=== PATIENT | female | born 1995 | race American Indian/Alaskan Native ===

== ENCOUNTER 2017-08-11 03:27 | Emergency (ER) | payer MEDICAID, OTHER, SELFPAY | END 2017-08-11 04:41 | disposition home or self-care (01) | PROVIDERS: Emergency Provider Emergency Medicine; Visit Provider Emergency Medicine | DX: N39.0 Urinary tract infection, site not specified (principal) | CPT/HCPCS: 81003; 81015; 81025; 87086; 99282 ==

== ENCOUNTER → 2017-11-10 10:51 | Outpatient (CLI) | payer MEDICAID, SELFPAY | PROVIDERS: PCP Obstetrics & Gynecology; Visit Provider Obstetrics & Gynecology | DX: Z53.8 Procedure and treatment not carried out for other reasons (principal) ==

== ENCOUNTER → 2017-11-29 12:30 | Outpatient (CLI) | payer MEDICAID, SELFPAY ==
[2017-11-29 13:41] LABS: Add Manual Diff / Slide Review NO; Basophils Percent Auto 0.4 % (0-2); Eosinophils Percent Auto 0.8 % (2-4); Hematocrit 37.9 % (36-46); Hemoglobin 12.9 g/dL (12.0-16.0); Lymphocytes Percent Auto 19.9 % (25-40); Mean Corpuscular HGB Conc 34.1 % (30-36); Mean Corpuscular Hemoglobin 30.7 PG (26-34); Monocytes Percent Auto 4.1 % (3-14); Neutrophils Absolute Auto 9000 /uL (3000-5900); Neutrophils Percent Auto 74.8 % (50-75); Platelet Count 393 X10^3/uL (150-400); Red Blood Cell Count 4.21 X10^6/uL (4.0-5.2); Red Cell Distribution Width 13.8 % (11.6-14.8); White Blood Cell Count 12.1 X10^3/uL (4.5-11.0)
[2017-11-29 16:07] LABS: HIV 1 and 2 Antibody NEGATIVE (NEGATIVE); Hep C Virus Ab w/Reflex Quant NEGATIVE s/c (NEGATIVE); Hepatitis B Surface Antigen NEGATIVE s/c (NEGATIVE); Rubella Antibody IgG 3.3 IU/mL (>15)
[2017-12-01 13:47] LABS: HSV 2 IGG AB < 0.90 index (< 0.90)
[2017-12-05 10:23] LABS: Rapid Plasma Reagin NON-REACTIVE
== END ==
PROVIDERS: PCP Obstetrics & Gynecology; Visit Provider Obstetrics & Gynecology
DX: Z34.91 Encounter for supervision of normal pregnancy, unspecified, first trimester (principal)
CPT/HCPCS: 36415; 80055; 86695; 86696; 86703; 86787; 86803; 86850; 86900; 86901

== ENCOUNTER → 2017-12-13 09:50 | Outpatient (CLI) | payer MEDICAID, SELFPAY ==
--- NOTE | 2017-12-13 09:51 | DI.US.S_ITS ---
PROCEDURE: US OB >= 14 WEEKS FETUS INDICATIONS: Anatomy Survey OUTSIDE/PRIOR DATING DATA: Last menstrual period (LMP): Unknown. LMP-based estimated date of delivery (CLEMENTE): Not available. First dating scan (date and location): 08/20/17, [facility]. Estimated date of delivery (CLEMENTE) from first dating scan: 04/20/18. TECHNIQUE: Real-time scanning was performed of the fetus, with image documentation and biometric measurements. Endovaginal scanning: No COMPARISON: [facility], OB COMPLETE LESS THAN 14 WKS, 08/20/2017, 18:34. [facility], OB >= 14 WEEKS FETUS, 11/29/2017, 12:11. FINDINGS: General: A single living intrauterine gestation is present. Presentation: Vertex. Placenta: Placental position is anterior, without previa. Amniotic fluid index: 14.2 cm, normal range is 5-24 cm. heart rate: 160 beats per minute. Maternal cervical canal: 4.9 cm long. Normal lower limit is 2.5 cm. biometrics: Biparietal diameter: 21 weeks 3 days Head circumference: 20 weeks 6 days Abdominal circumference: 21 weeks 4 days Femur length: 21 weeks 6 days Estimated gestational age from initial scan: 21 weeks 5 days Composite gestational age from present scan: 21 weeks 3 days Estimated weight and percentile: 437 g; 38 percentile Measurement variability for biometric dating: +/- 7 days from 14 weeks to 15 weeks 6 days gestation, +/- 10 days from 16 weeks to 21 weeks 6 days gestation, +/- 2 weeks from 22 weeks to 27 weeks 6 days gestation, +/- 3 weeks for 28 weeks gestation or later. weight reference: 4500 g or EFW >90/95% is considered macrosomia or large for gestational age. EFW <10% is small for gestational age. EFW 5% or less is considered intra-uterine growth restriction. Anatomic survey: Neuro: Ventricles are non-dilated at less than 10 mm. Cisterna magna is normal at 3-11 mm. Cerebellum is normal in size and morphology. Nuchal skin fold: Normal at less than 6 mm between 14-21 weeks gestational age. Face: Nose and lips, facial profile are normal. Spine: No evidence for spina bifida. Heart: 4-chambered heart is present, with normal ventricular outflow tracts. Diaphragm: Diaphragm is intact. Stomach: Left-sided stomach is present. Kidneys: No hydronephrosis. Normal is less than 5 mm in 2nd trimester, less than 7 mm in 3rd trimester. Cord: 3-vessel cord has orthotopic insertion. Bladder: Normal in size. Extremities: All 4 extremities identified. IMPRESSION: 1. Single living IUP redemonstrated in interval growth is normal. 2. Normal anatomic survey. Dictated by: Sam Moyer [facility] Interpreted: Anushka Kelly MD on 12/13/2017 at 11:16 Approved by: Anushka Kelly MD, PhD on 12/13/2017 at 12:38
== END ==
PROVIDERS: PCP Obstetrics & Gynecology; Visit Provider Obstetrics & Gynecology
DX: Z34.82 Encounter for supervision of other normal pregnancy, second trimester (principal); Z3A.21 21 weeks gestation of pregnancy
CPT/HCPCS: 76811

== ENCOUNTER → 2018-01-19 11:27 | Outpatient (CLI) | payer MEDICAID, SELFPAY ==
[2018-01-19 14:04] LABS: Hematocrit 34.4 % (36-46)
[2018-01-19 14:51] LABS: GTT (PREG) 1 Hour PP 50gm Dose 111 mg/dL (76-139)
== END ==
PROVIDERS: PCP Obstetrics & Gynecology; Visit Provider Obstetrics & Gynecology
DX: Z34.82 Encounter for supervision of other normal pregnancy, second trimester (principal)
CPT/HCPCS: 36415; 82950; 85014; 85018

== ENCOUNTER 2018-01-26 15:57 | Observation (INO) | payer MEDICAID, SELFPAY ==
--- NOTE | 2018-01-26 17:36 | DI.US.S_ITS ---
PROCEDURE: US OB TRANSVAGINAL INDICATIONS: need cervical length OUTSIDE/PRIOR DATING DATA: Last menstrual period (LMP): None. LMP-based estimated date of delivery (CLEMENTE): None. First dating scan (date and location): 08/20/17 Estimated date of delivery (CLEMENTE) from first dating scan: 04/20/18. TECHNIQUE: Real-time scanning was performed of the fetus, with image documentation. Endovaginal scanning: Yes COMPARISON: None. FINDINGS: A single living intrauterine gestation is present. Presentation: Breech heart rate: 147 beats per minute. Maternal cervical canal: 3.7 cm long. Normal lower limit is 2.5 cm. Estimated gestational age from initial scan: 28 week zero day. IMPRESSION: Limited evaluation shows a single live intrauterine with fetus in breech presentation. heart rate is 147 beats per minute. Cervical length is 3.7 cm. Dictated by: Emigdio Felix M.D. on 01/26/2018 at 19:08 Approved by: Emigdio Felix M.D. on 01/26/2018 at 19:10
== END 2018-01-26 19:15 | disposition home or self-care (01) ==
PROVIDERS: Admitting Provider Obstetrics & Gynecology; PCP Obstetrics & Gynecology; Visit Provider Obstetrics & Gynecology
DX: Z34.83 Encounter for supervision of other normal pregnancy, third trimester (principal); Z3A.28 28 weeks gestation of pregnancy; O26.899 Other specified pregnancy related conditions, unspecified trimester
CPT/HCPCS: 59025; 76817; G0378; G0379

== ENCOUNTER 2018-03-03 08:42 | Outpatient (CLI) | payer MEDICAID, OTHER, SELFPAY ==
--- NOTE | 2018-03-03 09:18 | DI.US.S_ITS ---
PROCEDURE: US OB TRANSVAGINAL INDICATIONS: CERVICAL LENGTH OUTSIDE/PRIOR DATING DATA: Last menstrual period (LMP): Unknown. LMP-based estimated date of delivery (CLEMENTE): Unknown. First dating scan (date and location): 08/20/17. Estimated date of delivery (CLEMENTE) from first dating scan: 04/20/18. TECHNIQUE: Real-time scanning was performed of the fetus, with image documentation. COMPARISON: [facility], OB COMPLETE LESS THAN 14 WKS, 08/20/2017, 18:34. [facility], , OB > 14 WEEKS, 02/23/2018, 16:42. [facility], OB >= 14 WEEKS FETUS, 02/09/2018, 12:10. [facility], OB TRANSVAGINAL, 01/26/2018, 18:54. FINDINGS: A single living intrauterine gestation is present. Presentation: Vertex. Placenta: Placental position is fundal, without previa. Lower placental edge 0.5 to 3 cm from internal cervical os qualifies as low lying placenta. Marginal previa is defined as lower edge 0 to 0.5 mm from internal os. Amniotic fluid index: 15.5 cm, normal range is 5-24 cm. heart rate: 145 beats per minute. Maternal cervical canal: 4.0 cm long. Normal lower limit is 2.5 cm. Estimated gestational age from initial scan: 33 weeks one day. IMPRESSION: 1. Single live intrauterine with cervical length measuring 4.0 cm. Dictated by: Ashley Junior M.D. on 03/03/2018 at 10:43 Approved by: Ashley Junior M.D. on 03/03/2018 at 10:50
--- NOTE | 2018-03-03 10:03 | PM.OBTRLD ---
Visit Information Visit Information Date of evaluation: 03/03/18 Primary OB Provider: Cleopatra Campbell On-call OB Provider: Guera España Reason for Evaluation: Yes pre-term labor [facility] Medical History Acne (Chronic) Anxiety (Chronic) Depression (Chronic) Surgical History No history of previous surgery (Resolved 02/2016) Family History Brother SIDS (sudden syndrome) Father Liver failure Mother Heart attack Sister No problems noted. Sister No problems noted. Evaluation Evaluation Baseline heart rate: 150 Variability: Moderate (11-25) monitor accelerations: Present monitor decelerations: Absent Uterine Contraction Intensity: Mild Category of Tracing: I Diagnosis, Plan/Disposition Final Diagnosis (1) 33 weeks gestation of : Current Visit: Yes Status: Acute (2) contractions: Current Visit: Yes Status: Acute Plan/Disposition Plan: 22-year-old at 33 and 1 weeks gestation with prior 33 week delivery presenting today with frequent contractions. Contractions started several hours prior to arrival. Patient also reported slight pink discharge when wiping which has not recurred. Denies leaking fluid. On the monitor she is having irregular contractions. heart tones reassuring. Cervical length 4 centimeters on ultrasound today. MUNIRA 15. labor unlikely at this point. Patient follow up with Dr. Campbell for her next OB appointment. Return precautions given by center nurse.
--- NOTE | 2018-03-03 10:06 | P.TNLD_ITS ---
Visit Information Visit Information Date of evaluation: 03/03/18 Primary OB Provider: Cleopatra Campbell On-call OB Provider: Guera España Reason for Evaluation: Yes pre-term labor [facility] Medical History Acne (Chronic) Anxiety (Chronic) Depression (Chronic) Surgical History No history of previous surgery (Resolved 02/2016) Family History Brother SIDS (sudden syndrome) Father Liver failure Mother Heart attack Sister No problems noted. Sister No problems noted. Evaluation Evaluation Baseline heart rate: 150 Variability: Moderate (11-25) monitor accelerations: Present monitor decelerations: Absent Uterine Contraction Intensity: Mild Category of Tracing: I Diagnosis, Plan/Disposition Final Diagnosis (1) 33 weeks gestation of : Current Visit: Yes Status: Acute (2) contractions: Current Visit: Yes Status: Acute Plan/Disposition Plan: 22-year-old at 33 and 1 weeks gestation with prior 33 week delivery presenting today with frequent contractions. Contractions started several hours prior to arrival. Patient also reported slight pink discharge when wiping which has not recurred. Denies leaking fluid. On the monitor she is having irregular contractions. heart tones reassuring. Cervical length 4 centimeters on ultrasound today. MUNIRA 15. labor unlikely at this point. Patient follow up with Dr. Campbell for her next OB appointment. Return precautions given by center nurse.
[2018-03-03 10:25] LABS: Appearance Urine UA CLEAR; Bilirubin Urine UA NEGATIVE (NEGATIVE); Color Urine UA YELLOW; Glucose Urine UA NEGATIVE (Normal); Ketones Urine UA NEGATIVE (NEGATIVE); Leukocyte Esterase Urine UA 3+ (NEGATIVE); Nitrite Urine UA NEGATIVE (Negative); Occult Blood Urine UA 3+ (Negative); Protein Urine UA TRACE (Negative); Urobilinogen Urine UA 0.2 E.U./dL (0.2)
[2018-03-03 10:27] LABS: RBC Urine 5-10/HPF (0-5/HPF)
[2018-03-03 10:28] LABS: Bacteria Urine Moderate (10-30); Culture Indicated Urine Cult Not Indicated; Squamous Epithelial Cell Urine 5-10 /HPF; WBC Urine 10-30/HPF (0-5/HPF)
== END 2018-03-03 10:40 | disposition home or self-care (01) ==
LOC: LABOR 09:03 → OB 03-05 06:59
PROVIDERS: PCP Obstetrics & Gynecology; Visit Provider Family Medicine
DX: Z34.83 Encounter for supervision of other normal pregnancy, third trimester (principal); Z3A.33 33 weeks gestation of pregnancy; O47.9 False labor, unspecified
CPT/HCPCS: 59025; 76817; 81001; G0378; G0379

== ENCOUNTER 2018-03-18 22:46 | Outpatient (CLI) | payer MEDICAID, OTHER, SELFPAY ==
--- NOTE | 2018-03-19 09:40 | PM.OBTRLD ---
Visit Information Visit Information Date of evaluation: 03/18/18 Primary OB Provider: Cleopatra Campbell On-call OB Provider: Clara Small Reason for Evaluation: Yes rule out labor Vital Signs Vital Signs: Blood pressure 115/54, pulse of 111 Evaluation Evaluation Baseline heart rate: 150 Variability: Moderate (11-25) monitor accelerations: Present monitor decelerations: Absent Contraction Frequency (minutes): 10 Uterine Contraction Intensity: Mild Category of Tracing: I Diagnosis, Plan/Disposition Final Diagnosis (1) contractions: Current Visit: No Status: Acute (2) 35 weeks gestation of : Current Visit: No Status: Acute Plan/Disposition Plan: Patient is not in active labor she was discharged home with routine precautions.
== END 2018-03-18 23:45 | disposition home or self-care (01) ==
LOC: OB 03-19 15:45
PROVIDERS: PCP Obstetrics & Gynecology; Visit Provider Specialist
DX: Z34.83 Encounter for supervision of other normal pregnancy, third trimester (principal); Z3A.35 35 weeks gestation of pregnancy
CPT/HCPCS: 59025; G0378; G0379

== ENCOUNTER 2018-03-25 19:34 | Outpatient (CLI) | payer MEDICAID, OTHER, SELFPAY ==
[2018-03-25 20:50] LABS: RBC Urine None Seen (0-5/HPF)
[2018-03-25 20:52] LABS: Appearance Urine UA SL CLOUDY; Bilirubin Urine UA NEGATIVE (NEGATIVE); Color Urine UA YELLOW; Glucose Urine UA NEGATIVE (Normal); Ketones Urine UA NEGATIVE (NEGATIVE); Leukocyte Esterase Urine UA 3+ (NEGATIVE); Nitrite Urine UA NEGATIVE (Negative); Occult Blood Urine UA NEGATIVE (Negative); Protein Urine UA NEGATIVE (Negative); Specific Gravity Urine UA 1.015 (1.000-1.035); Urobilinogen Urine UA 0.2 E.U./dL (0.2)
[2018-03-25 21:11] LABS: Amorphous Sediment Urine 1+; Bacteria Urine Few (2-10); Squamous Epithelial Cell Urine 1-5 /HPF; Trichomonas Urine 1-5/HPF (None Seen); WBC Urine 0-1/HPF (0-5/HPF)
[2018-03-25 21:12] LABS: Culture Indicated Urine Specimen Cultured
[2018-03-25 21:33] LABS: Strep Grp B PCR NEG for Grp B Strep
== END 2018-03-25 20:49 | disposition home or self-care (01) ==
LOC: OB 03-27 08:52
PROVIDERS: Family Provider Obstetrics & Gynecology; PCP Obstetrics & Gynecology; Visit Provider Family Medicine
DX: Z34.83 Encounter for supervision of other normal pregnancy, third trimester (principal); Z3A.36 36 weeks gestation of pregnancy
CPT/HCPCS: 59025; 81001; 87081; 87086; 87653; G0378; G0379

== ENCOUNTER 2018-03-27 17:21 | Outpatient (CLI) | payer MEDICAID, OTHER, SELFPAY ==
[2018-03-27 18:04] LABS: Add Manual Diff / Slide Review NO; Basophils Percent Auto 0.5 % (0-2); Eosinophils Percent Auto 1.1 % (2-4); Hematocrit 37.2 % (36-46); Hemoglobin 12.5 g/dL (12.0-16.0); Lymphocytes Percent Auto 20.4 % (25-40); Mean Corpuscular HGB Conc 33.7 % (30-36); Mean Corpuscular Hemoglobin 30.8 PG (26-34); Mean Corpuscular Volume 91.3 fL (80-100); Monocytes Percent Auto 5.3 % (3-14); Neutrophils Absolute Auto 9100 /uL (3000-5900); Neutrophils Percent Auto 72.7 % (50-75); Platelet Count 313 X10^3/uL (150-400); Red Blood Cell Count 4.08 X10^6/uL (4.0-5.2); Red Cell Distribution Width 13.8 % (11.6-14.8); White Blood Cell Count 12.5 X10^3/uL (4.5-11.0)
[2018-03-27 18:15] LABS: Aspartate Aminotransferase 20 IU/L (14-36); Blood Urea Nitrogen 8 mg/dL (7-17); Estimated Glomerular Filt Rate > 60.0 mL/min (>60)
--- NOTE | 2018-03-27 18:25 | PM.OBTRLD ---
Visit Information Visit Information Date of evaluation: 03/27/18 Primary OB Provider: Cleopatra Campbell On-call OB Provider: Amalia Ibarra Reason for Evaluation: Yes other Comments/Additional reasons for admission: Pt sent from the [facility] clinic due to concerns for elevated BP and swelling. The pt reports that her BP was in the 120 to low 130s/70s. She denies headache, vision changes, RUQ pain. Objective Labs Result Diagrams: 03/27/18 17:56 03/27/18 17:56 Labs: Laboratory Results - last 24 hr 03/27/18 03/27/18 17:56 17:56 WBC 12.5 H RBC 4.08 Hgb 12.5 Hct 37.2 MCV 91.3 MCH 30.8 MCHC 33.7 RDW 13.8 Plt Count 313 Neut % (Auto) 72.7 Lymph % (Auto) 20.4 L Emmons % (Auto) 5.3 Eos % (Auto) 1.1 L Baso % (Auto) 0.5 Neut # (Auto) 9100 H BUN 8 Creatinine 0.50 L Estimated GFR > 60.0 BUN/Creatinine Ratio 16.0 Uric Acid 5.0 AST 20 Evaluation Evaluation Baseline heart rate: 145 Variability: Moderate (11-25) monitor accelerations: Present monitor decelerations: Absent Category of Tracing: I Laboratory results: Laboratory Tests 03/27/18 03/27/18 17:56 17:56 WBC 12.5 H RBC 4.08 Hgb 12.5 Hct 37.2 MCV 91.3 MCH 30.8 MCHC 33.7 RDW 13.8 Plt Count 313 Neut % (Auto) 72.7 Lymph % (Auto) 20.4 L Emmons % (Auto) 5.3 Eos % (Auto) 1.1 L Baso % (Auto) 0.5 Neut # (Auto) 9100 H BUN 8 Creatinine 0.50 L Estimated GFR > 60.0 BUN/Creatinine Ratio 16.0 Uric Acid 5.0 AST 20 Diagnosis, Plan/Disposition Final Diagnosis (1) 36 weeks gestation of : Current Visit: No Status: Acute Plan/Disposition Plan: Pt with BPs elevated above normal baseline, but still in normal range at outside clinic. Here in hospital, BP normal range. Negative HELLP/pre-eclampsia labs. Stable for d/c home. F/U with primary OB tomorrow. OB Disposition: home
--- NOTE | 2018-03-27 18:28 | P.TNLD_ITS ---
Visit Information Visit Information Date of evaluation: 03/27/18 Primary OB Provider: Cleopatra Campbell On-call OB Provider: Amalia Ibarra Reason for Evaluation: Yes other Comments/Additional reasons for admission: Pt sent from the [facility] clinic due to concerns for elevated BP and swelling. The pt reports that her BP was in the 120 to low 130s/70s. She denies headache, vision changes, RUQ pain. Objective Labs Result Diagrams: 03/27/18 17:56 03/27/18 17:56 Labs: Laboratory Results - last 24 hr 03/27/18 03/27/18 17:56 17:56 WBC 12.5 H RBC 4.08 Hgb 12.5 Hct 37.2 MCV 91.3 MCH 30.8 MCHC 33.7 RDW 13.8 Plt Count 313 Neut % (Auto) 72.7 Lymph % (Auto) 20.4 L Swain % (Auto) 5.3 Eos % (Auto) 1.1 L Baso % (Auto) 0.5 Neut # (Auto) 9100 H BUN 8 Creatinine 0.50 L Estimated GFR > 60.0 BUN/Creatinine Ratio 16.0 Uric Acid 5.0 AST 20 Evaluation Evaluation Baseline heart rate: 145 Variability: Moderate (11-25) monitor accelerations: Present monitor decelerations: Absent Category of Tracing: I Laboratory results: Laboratory Tests 03/27/18 03/27/18 17:56 17:56 WBC 12.5 H RBC 4.08 Hgb 12.5 Hct 37.2 MCV 91.3 MCH 30.8 MCHC 33.7 RDW 13.8 Plt Count 313 Neut % (Auto) 72.7 Lymph % (Auto) 20.4 L Swain % (Auto) 5.3 Eos % (Auto) 1.1 L Baso % (Auto) 0.5 Neut # (Auto) 9100 H BUN 8 Creatinine 0.50 L Estimated GFR > 60.0 BUN/Creatinine Ratio 16.0 Uric Acid 5.0 AST 20 Diagnosis, Plan/Disposition Final Diagnosis (1) 36 weeks gestation of : Current Visit: No Status: Acute Plan/Disposition Plan: Pt with BPs elevated above normal baseline, but still in normal range at outside clinic. Here in hospital, BP normal range. Negative HELLP/pre- eclampsia labs. Stable for d/c home. F/U with primary OB tomorrow. OB Disposition: home
== END 2018-03-27 18:27 | disposition home or self-care (01) ==
LOC: OB 03-28 12:47
PROVIDERS: Family Provider Obstetrics & Gynecology; PCP Obstetrics & Gynecology; Visit Provider Family Medicine
DX: Z34.83 Encounter for supervision of other normal pregnancy, third trimester (principal); Z3A.36 36 weeks gestation of pregnancy
CPT/HCPCS: 59025; 84450; 84550; 85025; G0378; G0379

== ENCOUNTER → 2018-03-28 12:31 | Outpatient (CLI) | payer MEDICAID, OTHER, SELFPAY | PROVIDERS: Family Provider Obstetrics & Gynecology; PCP Obstetrics & Gynecology; Visit Provider Obstetrics & Gynecology | DX: Z13.9 Encounter for screening, unspecified (principal) ==

== ENCOUNTER 2018-03-31 07:19 | Inpatient (IN) | payer MEDICAID, OTHER, SELFPAY ==
[2018-03-31] MEDS: LACTATED RINGERS 1,000 ML 100 ML IV ×3 (08:00→12:07)
[2018-03-31 08:05] LABS: Add Manual Diff / Slide Review NO; Basophils Percent Auto 0.8 % (0-2); Eosinophils Percent Auto 1.4 % (2-4); Hematocrit 38.1 % (36-46); Hemoglobin 12.9 g/dL (12.0-16.0); Lymphocytes Percent Auto 23.1 % (25-40); Mean Corpuscular HGB Conc 33.8 % (30-36); Mean Corpuscular Hemoglobin 30.8 PG (26-34); Mean Corpuscular Volume 91.2 fL (80-100); Monocytes Percent Auto 6.5 % (3-14); Neutrophils Absolute Auto 9100 /uL (3000-5900); Neutrophils Percent Auto 68.2 % (50-75); Platelet Count 324 X10^3/uL (150-400); Red Blood Cell Count 4.18 X10^6/uL (4.0-5.2); Red Cell Distribution Width 13.8 % (11.6-14.8); White Blood Cell Count 13.3 X10^3/uL (4.5-11.0)
--- NOTE | 2018-03-31 09:43 | P.HPOB_ITS ---
OB HPI Date/Time Date of admission: 03/31/18 Date Patient Seen: 03/31/18 Time Patient Seen: 09:39 History of Present Condition Chief complaint: OBS : 2 Para: 1 Estimated Date of Delivery: 04/20/18 Estimated Gestational Age (weeks): 37+1 Narrative: Consuelo Davies is a 22 year old female 2 para 1 at 37-,1/7 weeks gestation with spontaneous rupture of membranes and active labor Indications Other reason(s) for admission: Spontaneous rupture of membrane Active labor History of Present care: good care, initiated at week # (11), number of visits (9) and pounds weight gain (53) Dating criteria: LMP confirmed by 1st trimester US Ultrasounds: normal 1st trimester US and normal mid trimester US Obstetrical complications: none Medical complications: none Narrative: On [place] injections due to previous delivery Preadmission Labs Blood type: O (+) positive -: Antibody screen: negative, GBS status: negative, HBsAG: negative, HIV: negative, HSV 1: positive, HSV 2: negative and RPR/VDLR: negative -: Chlamydia screen: not detected and Gonorrhea screen: not detected -: Rubella: not immune and Varicella: immune HCT: 34.4 HCAB: negative PAP: Abnormal (LGSIL) Quad screen: Normal Urine: Negative 1 hr GTT: 111 Prior (ies) History: 07/22/16 33 wks forceps UW 4#6oz Epid boy Evaluation Evaluation Baseline heart rate: 135 Variability: Moderate (11-25) monitor accelerations: Present monitor decelerations: Absent Contraction Frequency (minutes): 4 Uterine Contraction Intensity: Moderate Category of Tracing: I Cervical dilation (cm): 4 Cervical effacement (%): 75 station: -3 Laboratory results: Laboratory Tests 03/31/18 03/31/18 07:53 07:53 WBC 13.3 H RBC 4.18 Hgb 12.9 Hct 38.1 MCV 91.2 MCH 30.8 MCHC 33.8 RDW 13.8 Plt Count 324 Neut % (Auto) 68.2 Lymph % (Auto) 23.1 L [place] % (Auto) 6.5 Eos % (Auto) 1.4 L Baso % (Auto) 0.8 Neut # (Auto) 9100 H Blood Type O Positive Antibody Screen Negative Non-invasive Membranes Rupture Test: positive Meds Home Medications Medication Instructions Recorded Confirmed Type VIT#96/FERROUS FUM/FA 1 tab PO QDAY #100 tab 02/08/16 Rx ( Vitamin) azithromycin [Zithromax Z-Demetrius] 1,000 mg PO X1 #4 tab 02/16/16 Rx amoxicillin 500 mg PO Q8H #30 cap 05/10/16 Rx nitrofurantoin monohyd/m-cryst 100 mg PO BID 5 Days #0 cap 08/11/17 Rx [Macrobid] ondansetron [Zofran ODT] 4 mg SUBLINGUAL Q4HP PRN #10 odt 08/11/17 Rx 1 tab PO DAILY #90 tab 10/13/17 Rx vitamin,calcium,jqjudrck-gtvb-wxvnr acid tablet Exam Vital Signs (past 8 hours): Generally: Patient comfortable after epidural Lungs: Clear to auscultation bilaterally Cardiovascular: Regular rate and rhythm Fundal height: 39 cm Estimated weight: 7-1/2 lb Extremities: Trace edema, negative Homans Objective Labs Result Diagrams: 03/31/18 07:53 Labs: Laboratory Results - last 24 hr 03/31/18 03/31/18 07:53 07:53 WBC 13.3 H RBC 4.18 Hgb 12.9 Hct 38.1 MCV 91.2 MCH 30.8 MCHC 33.8 RDW 13.8 Plt Count 324 Neut % (Auto) 68.2 Lymph % (Auto) 23.1 L [place] % (Auto) 6.5 Eos % (Auto) 1.4 L Baso % (Auto) 0.8 Neut # (Auto) 9100 H Blood Type O Positive Antibody Screen Negative Assessment and Plan (1) 37 weeks gestation of : Current visit: Yes Status: Acute (2) History of delivery: Current visit: Yes Status: Acute Plan: Plan: Assessment: 22-year-old 2 para 0101 at 37-,1/7 weeks gestation with spontaneous rupture of membranes in active labor Comfortable status post epidural Plan: Expected management to spontaneous vaginal delivery
[2018-03-31 12:12] VITALS: BP 140/63
--- NOTE | 2018-03-31 14:10 | PM.OBPRVD ---
Delivery date: 03/31/18 Intrapartal events: None Induction method: none Delivery monitor: external FHT and external uterine Route of delivery: Episiotomy description: None Laceration description: Vaginal - 2nd Degree Delivery repair: vicryl and chromic Estimated blood loss (mL): 200 Anesthesia type: Epidural Complications: None Narrative: Patient complete and pushed with 2 contractions. At 1:26 p.m., a live female infant delivered spontaneously over an intact perineum. No nuchal cord. The remainder of the body delivered without difficulty. There was a short cord and infant could not be placed on mom's abdomen. The cord was double clamped and cut. Cord bloods were obtained. The placenta delivered intact with a 3 vessel cord at 1335. Pitocin was given in the IV fluids. Fundus was massaged to firm. A second-degree vaginal and perineal laceration was repaired in the usual fashion. Hemostasis was achieved. Apgars 9 at 1 min and 9 at 5 min. . Epidural analgesia. Mom and infant stable to recovery. Plan for aftercare: To routine care
[2018-03-31] MEDS: IBUPROFEN 600 MG TABLET PO ×2 (16:20→23:08)
[2018-03-31] MEDS: DERMOPLAST SPRAY 20% 60 ML 1 SPRAY TOP (16:23)
[2018-04-01] MEDS: IBUPROFEN 600 MG TABLET PO ×3 (05:49→16:53)
[2018-04-01 06:14] LABS: Hematocrit 34.3 % (36-46); Hemoglobin 11.6 g/dL (12.0-16.0)
[2018-04-01] MEDS: PRENATAL VIT,CALC/IRON/FOLIC 1 TABLET 1 TAB PO (11:11)
[2018-04-01] MEDS: DOCUSATE 250 MG CAPSULE PO (11:11)
[2018-04-02] MEDS: IBUPROFEN 600 MG TABLET PO ×3 (00:13→12:03)
[2018-04-02 09:58] VITALS: BP 134/82; PULSE 100; RESP 16; TEMP 36.5
[2018-04-02] MEDS: DOCUSATE 250 MG CAPSULE PO (12:03)
[2018-04-02] MEDS: PRENATAL VIT,CALC/IRON/FOLIC 1 TABLET 1 TAB PO (12:03)
--- NOTE | 2018-04-03 06:44 | PM.OBPN.1 ---
Subjective - OB Interval history: Patient is a 22-year-old 2 para 2 day # 1 status post spontaneous vaginal delivery. Patient doing well. Patient comments: no complaints and pain well controlled [place] baby status: doing well feeding status: exclusively breast feeding Date Patient Seen: 04/01/18 Time Patient Seen: 13:30 Exam Vital Signs (past 8 hours): Generally: Patient lying in bed, no acute distress Fundus: Firm at U -1 Extremities: Negative Homans, no edema Objective Labs Result Diagrams: 04/01/18 06:00 Assessment & Plan (1) 37 weeks gestation of : Status: Acute Current Visit: No (2) History of delivery: Status: Acute Current Visit: No (3) Normal spontaneous vaginal delivery: Status: Acute Assessment and plan: Assessment: 22-year-old 2 para 2 postop day # 1 status post spontaneous vaginal delivery doing very well. Baby being kept for possible jaundice Plan: consultation tomorrow morning Current Visit: No Plan day: 1 plan OB: routine care Time Spent With Patient Total time spent is greater than 50% in coordination of care (as documented) at patient's floor/unit and/or counseling patient: less than 15 minutes
--- NOTE | 2018-04-03 06:48 | PM.OBDS.1 ---
Discharge Providers Date of admission: 03/31/18 07:19 Primary care physician: Cleopatra Campbell MD Consults: 03/31/18 16:16 Consult to Senior Lead Project Manager Routine Comment: Discharge provider: Cleopatra Campbell MD Discharge Date: 04/02/18 Summary Date Patient Seen: 04/02/18 Time Patient Seen: 12:15 Hospital Course: Patient presented with spontaneous rupture of membranes in active labor. She received an epidural for pain management. She progressed to complete dilation. She pushed with 2 contractions and had a spontaneous vaginal delivery. course was unremarkable. She was discharged home on day # 2 after consultation. Peripartum Data Infant Delivery Method: Natural Vaginal Laceration description: Perineal - 2nd Degree Episiotomy description: None Procedures: Epidural analgesia Spontaneous vaginal delivery Second-degree laceration repair complications: none Discharge Diagnosis (1) 37 weeks gestation of : Status: Acute (2) History of delivery: Status: Acute (3) Normal spontaneous vaginal delivery: Status: Acute Status at Discharge Functional status at discharge: independent ambulation Overall status at discharge: patient is progressing back to baseline Time Spent with Patient Total time spent providing and/or coordinating discharge services: Objective Labs Result Diagrams: 04/01/18 06:00 Discharge Plan Discharge Plan Patient Disposition: Home Discharge comment: Call with fever, chills or bleeding vaginally more than a pad in an hour Discharge Med Rec/Prescriptions Prescriptions: New ibuprofen 600 mg tablet 600 mg PO QID PRN (Reason: pain) Qty: 30 RF: 0 No Action ibuprofen 600 mg tablet 600 mg PO QID PRN (Reason: pain) Qty: 30 RF: 0 Follow up/Referrals: Cleopatra Campbell MD [Primary Care Provider] - 6 Weeks (Follow up with Dr. Campbell on April at 2:00) Provider Discharge Instructions Diet: Diet as Tolerated Activity: No intercourse Skin/Wound/Dressing Care Report to your healthcare provider any signs of infection, such as:: chills, fever, increased pain, unusual drainage and unusual redness Visit Report/Discharge Packet Instructions: DI for Heart Failure, DI for Labor and Delivery, Vaginal Visit Report Forms: Stroke Signs & Symptoms Discharge Data Primary Care Provider: Cleopatra Campbell Attending Provider: Cleopatra Campbell Admit Date/Time: 03/31/18 07:19 Discharges patient from system. Discharge Date/Time: 04/02/18 12:20
== END 2018-04-02 12:20 | disposition home or self-care (01) | DRG 807 ==
PROVIDERS: Admitting Provider Obstetrics & Gynecology; Family Provider Obstetrics & Gynecology; PCP Obstetrics & Gynecology; Visit Provider Obstetrics & Gynecology
DX: O70.1 Second degree perineal laceration during delivery (principal); Z37.0 Single live birth; Z3A.37 37 weeks gestation of pregnancy
CPT/HCPCS: 01967; 36415; 59050; 59409; 85014; 85018; 85025; 86850; 86900; 86901; G0379; J3010